=== PATIENT | female | born 1945 | race Caucasian/White ===

== ENCOUNTER 2016-08-07 09:53 | Inpatient (IN) | payer MEDICARE ==
[~2016-08-07] VITALS: Ht 165.1 cm; Wt 79.0 kg
--- NOTE | ~2016-08-07 | PR ---
[place], [place] PROGRESS NOTE [id number] UNIT #: [id number] ROOM: 310 DOCTOR: ANNABEL GORDON BIRTHDATE: [birth year] DOS: 08/09/2016 CHIEF COMPLAINT: "I feel almost like I was." SUMMARY OF THE VISIT: She was in the dining room. She was ____, alert, pleasant. Mood is euthymic. Affect is appropriate. She has no jorge alberto or hypomania. She does say that she is having some issues with her bladder, that she was up twice through the night to go to the bathroom. She has been treated for urinary tract infection. We discussed that might take a little while for her to start feeling a little better from that. She reports that she slept well, that she feels good mentally. PLAN: She has already been started on Remeron and is sleeping better through the night, that will also help her with some of the bladder issues that she is having. Her dose right now is 15 mg and that was just started yesterday. The plan is to discharge her back to her home either on Monday or . We will ask the medical doctors if there is anything that they would like to do to assist her with her urinary issues that she is having until everything is resolved with the urinary tract infection. She is tolerating the Vistaril and the Remeron well. We will continue to try to engage her in individual and aguero milieu and discharge her back to her home when she is psychiatrically stable. Annabel Gordon NP CM:PNTRANS [id number] ANNABEL GORDON 08/09/16 1047 interface
--- NOTE | ~2016-08-07 | WRIGHTHP ---
[place], [place] PATIENT HISTORY AND PHYSICAL EXAM [id number] UNIT #: [id number] ROOM: 310 DOCTOR: BRIAN COHEN MD BIRTHDATE: [birth year] DOS: 08/08/2016 INITIAL PSYCHIATRIC EVALUATION CHIEF COMPLAINT: "Oh I have been so depressed I just need to get better." HISTORY OF PRESENT ILLNESS: This is a 70-year-old white female who was sent here from [facility] on an involuntary basis, apparently the patient has been depressed for sometime and has been very stressed out and not coping well. On the day of admission, she got into a fight with her and her son and stormed out of the house, walking [place] from there she called a taxi to return back home, once there her felt that she was acting irrationally and had brought her to the Emergency Room. Once there, the patient did admit to having suicidal thoughts. The patient does have a history of a suicide attempt approximately 2 years ago. She endorsed multiple neurovegetative symptoms while at the Emergency Room at [facility] reporting poor sleep. She has not slept well for several years, reporting that she has both difficulty falling asleep and significant sleep continuity disturbance, when she does awaken in the morning, she is very fatigued. She has not been attending to her ADLs, her appetite fluctuates and she has been crying for which she feels is no good reason, the patient reports being on Prozac for sometime, but the Prozac has lost its effectiveness. She was admitted now to rule out organic factors, to stabilize on medication, ultimately returning home when stable. PAST MEDICAL HISTORY: Remarkable for hyperlipidemia and mitral valve prolapse, major depression, recurrent and possible obsessive compulsive disorder. ALLERGIES: SHE HAS ALLERGIES TO PENICILLIN AND CEPHALEXIN. MENTAL STATUS: The patient is alert and oriented to person, place, and time. Mood is overwhelmingly depressed. Affect is flat, blunted with very anxious, overtone, she is very fretful. There is no psychosis. There are no auditory or visual hallucinations. No delusions, no paranoia. Short, intermediate and long-term memory are grossly intact. DIAGNOSES: Major depression, recurrent, severe, and anxiety disorder, not otherwise specified. PLAN: Her Prozac has already been discontinued. We will start her on Remeron 15 mg at bedtime. Given the anxiety component and the fact that she was prescribed Xanax at home, but misusing it I will start her on Vistaril 25 mg twice daily and 50 mg at night. Routine screening examination show her to have a low vitamin D level, so I will start her on vitamin D 50,000 international units weekly. We will engage her in individual and aguero milieu activities with the ultimate plan to return back home when psychiatrically stable. [place], [place] PATIENT HISTORY AND PHYSICAL EXAM NAME: KENDALL DEE UNIT #: [id number] ROOM: 310 DOCTOR: BRIAN COHEN MD BIRTHDATE: [birth year] BRIAN COHEN MD CM:HISPHYS:PATIENT HISTORY AND PHYSICAL EXAMINATION [id number] BRIAN COHEN MD 08/08/16 1015 interface
--- NOTE | ~2016-08-07 | DS ---
[place], [place] DISCHARGE SUMMARY NAME: KENDALL DEE [facility] #: [id number] UNIT #: [id number] ROOM: 310 DOCTOR: BRIAN COHEN MD BIRTHDATE: [birth year] DOS: 08/10/2016 CHIEF COMPLAINT: "Oh I have been so depressed, I just need to get better." HISTORY OF PRESENT ILLNESS: This is a 70-year-old white female who was sent here from [facility] on an involuntary basis. Apparently, the patient had presented there acutely depressed and feeling very stressed out and had admitted to not being able to cope. On the day of admission, the patient reports she got into a significant fight with her and her son and stormed out of the house, walking to a local [place] alley. From there she called a taxi to return back home and once there, the felt that she was acting irrationally and brought her to the emergency room. Once there, the patient did admit to having suicidal thoughts. She did have a significant suicide attempt approximately 2 years ago by overdose. She endorsed multiple neurovegetative symptoms while at the emergency room at [facility], reporting poor sleep and appetite, anergia, anhedonia, hopeless, helpless feeling, crying spells, and inability to cope. She had been on Prozac for some time, but reported that it seemed to have lost its effectiveness. She is now admitted to the behavioral healthcare unit to rule out organic factors, to stabilize on medication, ultimately returning home when stable. PAST MEDICAL HISTORY: Remarkable for hyperlipidemia, mitral valve prolapse, major depression and possible obsessive compulsive disorder. ALLERGIES: PENICILLIN and CEPHALEXIN. SUMMARY OF HOSPITAL COURSE: The patient was admitted to the unit where her Prozac was discontinued in lieu of Remeron 15 mg at bedtime. Additionally, she was given Vistaril 25 mg twice daily and 50 mg at nighttime as a non-addictive antianxiety agent. Screening examinations upon admission showed her to have a low vitamin D level, so vitamin D 50,000 international units weekly was added. She had an almost instantaneous response to the Remeron reporting the best sleep she has had for some time, being able to fall asleep quickly, stay asleep through the night and wake up refreshed. The Vistaril likewise had a positive effect in decreasing her overriding anxiety and fretfulness. She denied any side effects from either medication, noting no daytime somnolence, lethargy or other side effects. After several days of maintaining a positive outlook and reporting positive plans for the future, it was felt that she had improved sufficiently to return back home. She already has followup with Dr. Obdulia Marley on MondayAugust 12 at 9:00 a.m. MENTAL STATUS AT DISCHARGE: The patient is alert and oriented to person, place, and time. Mood is significantly trending towards euthymia. Affect is much more appropriate. There is no symptom suggestive of hypomania or jorge alberto. There is no auditory or visual hallucinations. No delusions, no paranoia are present. Short, intermediate, and long-term memory are fully intact. FINAL DIAGNOSIS: Major depression, recurrent, severe. PLAN: All of her prescriptions have been e-scribed to [facility] pharmacy. She will [place], [place] DISCHARGE SUMMARY NAME: KENDALL DEE [place] [facility] #: [id number] UNIT #: [id number] ROOM: 310 DOCTOR: BRIAN COHEN MD BIRTHDATE: [birth year] be discharged home and have followup as above with Dr. Obdulia Marley on Monday at 9:00 a.m. BRIAN COHEN MD CM:JUANITA [id number] BRIAN COHEN MD 08/10/16 1534 interface
[2016-08-07] MEDS ORDERED: ASPIRIN CHEWABL81 MG PO (10:35)
[2016-08-07] MEDS ORDERED: XANAX1 MG PO (10:35)
[2016-08-07] MEDS ORDERED: PROZAC20 MG PO (10:40)
[2016-08-07] MEDS ORDERED: OMEPRAZOLE40 MG PO (10:46)
[2016-08-07] MEDS ORDERED: PRAVASTATIN SOD10 MG PO (10:47)
[2016-08-07] MEDS ORDERED: TROSPIUM CHLORI20 M1 PO (10:49)
[2016-08-07] MEDS ORDERED: FENOFIBRATE MI200 MG PO (10:50)
[2016-08-07 15:36] LABS: BASO # 0.1 10*3/uL (0.0-0.1); BASO % 0.7 % (0.0-1.0); EOS # 0.1 10*3/uL (0.0-0.4); EOS % 1.5 % (1.0-4.0); HEMATOCRIT 39.3 % (37.0-47.0); HEMOGLOBIN 12.7 g/dl (12.0-16.0); IG # 0.1 10*3/uL (0.0-0.1); LYMPH # 1.5 10*3/uL (1.3-4.4); MEAN CELL VOLUME 92.9 fl (81.0-99.0); MEAN CORPUSCULAR HGB CONC 32.3 g/dl (33.0-37.0); MEAN PLATELET VOLUME 10.8 fl (9.6-12.3); MONO # 0.9 10*3/uL (0.1-1.0); MONO % 11.1 % (3.0-9.0); NEUT # 5.8 10*3/uL (2.3-7.9); NEUT % 68.1 % (47.0-73.0); PLATELET COUNT AUTOMATED 307 10*3/uL (130-400); RED BLOOD COUNT 4.23 10*6/uL (4.10-5.10); RED CELL DISTRI WIDTH 14.6 % (0-14.5); WHITE BLOOD COUNT 8.5 10*3/uL (4.8-10.8)
[2016-08-07 16:07] LABS: ALBUMIN 3.8 gm/dl (3.1-4.5); ALKALINE PHOSPHATASE 44 U/L (45-117); BILIRUBIN, TOTAL 0.5 mg/dl (0.2-1.0); BUN 23 mg/dl (7-24); CARBON DIOXIDE 19 mmol/L (21-32); CHLORIDE 110 mmol/L (98-107); EST GLOM FILT AFRICAN AMERICAN > 60 ml/min; GLUCOSE 89 mg/dL (65-99); POTASSIUM 3.8 mmol/L (3.5-5.1); SGOT/AST 31 IU/L (3-35); SGPT/ALT 23 U/L (12-78); SODIUM 145 mmol/L (136-145); TOTAL PROTEIN 7.7 gm/dL (6.4-8.2)
[2016-08-07 16:15] LABS: FOLIC ACID 17.37 ng/mL (>5.38); VITAMIN D, 25-HYDROXY 14.7 ng/mL (30-100)
[2016-08-07 16:35] VITALS: BP 144/75
[2016-08-07 20:00] VITALS: BP 117/66
[2016-08-08 07:22] LABS: CHOLESTEROL 160 mg/dL (<200); HDL CHOLESTEROL 61 mg/dl (40-60); LDL CHOLESTEROL 84 mg/dL (9-159); TRIGLYCERIDES 76 mg/dl (<150); VLDL CHOLESTEROL 15 mg/dL (6-40)
[2016-08-08 08:50] VITALS: BP 122/72
[2016-08-08 21:24] VITALS: BP 119/81
[2016-08-08 21:27] VITALS: BP 119/81
[2016-08-09 06:29] LABS: BASO # 0.1 10*3/uL (0.0-0.1); BASO % 1.1 % (0.0-1.0); EOS # 0.4 10*3/uL (0.0-0.4); EOS % 4.6 % (1.0-4.0); HEMATOCRIT 41.6 % (37.0-47.0); HEMOGLOBIN 13.3 g/dl (12.0-16.0); IG # 0.1 10*3/uL (0.0-0.1); LYMPH # 2.9 10*3/uL (1.3-4.4); LYMPH % 34.1 % (27.0-41.0); MEAN CELL VOLUME 93.5 fl (81.0-99.0); MEAN CORPUSCULAR HGB 29.9 pg (27.0-31.0); MEAN PLATELET VOLUME 10.7 fl (9.6-12.3); MONO # 1.1 10*3/uL (0.1-1.0); MONO % 12.6 % (3.0-9.0); NEUT % 46.9 % (47.0-73.0); PLATELET COUNT AUTOMATED 309 10*3/uL (130-400); RED BLOOD COUNT 4.45 10*6/uL (4.10-5.10); RED CELL DISTRI WIDTH 14.5 % (0-14.5); WHITE BLOOD COUNT 8.5 10*3/uL (4.8-10.8)
[2016-08-09 08:00] VITALS: BP 115/70
[2016-08-09 20:00] VITALS: BP 130/82
[2016-08-10] MEDS ORDERED: HYDROXYZINE PAM25 M1 PO ×2 (07:54)
[2016-08-10] MEDS ORDERED: MIRTAZAPINE15 M2 PO (07:54)
[2016-08-10] MEDS ORDERED: VITAMIN D50000 I3 PO (07:54)
[2016-08-10 08:00] VITALS: BP 128/79
== END 2016-08-10 11:45 | disposition home or self-care (01) | DRG 885 ==
LOC: 3N 09:53
PROVIDERS: Internal Medicine; Psychiatry & Neurology Psychiatry; Registered Nurse
DX: F33.9 Major depressive disorder, recurrent, unspecified (principal); F23 Brief psychotic disorder; R45.851 Suicidal ideations; N39.0 Urinary tract infection, site not specified; K62.5 Hemorrhage of anus and rectum; F41.9 Anxiety disorder, unspecified; R03.0 Elevated blood-pressure reading, without diagnosis of hypertension; F42.9 Obsessive-compulsive disorder, unspecified; N39.42 Incontinence without sensory awareness; E78.5 Hyperlipidemia, unspecified; Z88.0 Allergy status to penicillin; Z88.1 Allergy status to other antibiotic agents; Z79.899 Other long term (current) drug therapy; Z79.82 Long term (current) use of aspirin